=== PATIENT | female | born 1940 | race Caucasian/White ===

== ENCOUNTER → 2017-01-02 | Outpatient (CLI) | payer MEDICARE ==
[~2017-01-02] MED LIST: PROTONIX20 MG PO
== END | disposition home or self-care (01) ==
LOC: CARD 03:34
DX: I08.1 Rheumatic disorders of both mitral and tricuspid valves (principal); E03.9 Hypothyroidism, unspecified; I10 Essential (primary) hypertension

== ENCOUNTER → 2017-12-25 | Outpatient (CLI) | payer MEDICARE | END | disposition home or self-care (01) | LOC: US 13:30 | DX: I73.9 Peripheral vascular disease, unspecified (principal); I25.10 Atherosclerotic heart disease of native coronary artery without angina pectoris ==

== ENCOUNTER → 2019-02-01 | Outpatient (CLI) | payer MEDICARE ==
--- NOTE | ~2019-02-01 | EKG ---
[place], [place] ELECTROCARDIOGRAM REPORT NAME: MARY JOHNSTON UNIT #: [id number] ROOM: DOCTOR: ARTHUR DRAFT REPORT BIRTHDATE: [birth year] [facility] Test Date: 2019-02-01 Test Time: 11:23:22 Pat Name: MARY JOHNSTON Department: op Room: Gender: F [place] [place] [employer]: EKG.AL : 1940 Requested By: LORENZO REA Order Number: [id number] Reading MD: Kev Fernando MD Measurements Intervals [place] Rate: 81 P: 20 MI: 176 QRS: -12 QRSD: 99 T: -2 QT: 421 QTc: 489 Interpretive Statements Sinus rhythm Supraventricular bigeminy Inferior infarct, old Electronically Signed On 02-04-2019 9:59:58 PST by Kev Fernando MD CM:EKGRPT:ELECTROCARDIOGRAM REPORT [id number] LORENZO CARTAGENA DRAFT REPORT LORENZO REA DO
== END | disposition home or self-care (01) ==
LOC: CARD 10:55
DX: I49.9 Cardiac arrhythmia, unspecified (principal); R42 Dizziness and giddiness

== ENCOUNTER → 2019-02-26 | Outpatient (CLI) | payer MEDICARE ==
[2019-02-26 13:16] LABS: HEMOGLOBIN 13.6 g/dl (12.0-16.0); MEAN CELL VOLUME 100.2 fl (81.0-99.0); MEAN CORPUSCULAR HGB 32.5 pg (27.0-31.0); MEAN CORPUSCULAR HGB CONC 32.4 g/dl (33.0-37.0); MEAN PLATELET VOLUME 10.6 fl (9.6-12.3); PLATELET COUNT AUTOMATED 126 10*3/uL (130-400); RED BLOOD COUNT 4.19 10*6/uL (4.10-5.10); RED CELL DISTRI WIDTH 14.3 % (0-14.5); WHITE BLOOD COUNT 4.5 10*3/uL (4.8-10.8)
[2019-02-26 13:28] LABS: ALKALINE PHOSPHATASE 110 U/L (45-117); BILIRUBIN, DIRECT 0.5 mg/dL (0.0-0.2); BUN 11 mg/dl (7-24); CHLORIDE 107 mmol/L (98-107); CREATININE 1.03 mg/dL (0.55-1.02); POTASSIUM 3.4 mmol/L (3.5-5.1); SGOT/AST 46 IU/L (3-35); SGPT/ALT 25 U/L (12-78); SODIUM 142 mmol/L (136-145); TOTAL PROTEIN 6.9 gm/dL (6.4-8.2)
[2019-02-26 13:42] LABS: TOTAL CELLS COUNTED 100 #CELLS
[2019-02-26 13:43] LABS: PLATELET SUFFICIENCY LOW (NORMAL)
[2019-02-28 09:06] LABS: APTT 30.3 sec (22.9-30.2)
== END | disposition home or self-care (01) ==
LOC: LAB 12:43
PROVIDERS: Family Medicine
DX: D69.6 Thrombocytopenia, unspecified (principal); D72.1 Eosinophilia; E80.6 Other disorders of bilirubin metabolism; E87.6 Hypokalemia; R74.0 Nonspecific elevation of levels of transaminase and lactic acid dehydrogenase [LDH]

== ENCOUNTER → 2019-03-08 | Outpatient (CLI) | payer MEDICARE | END | disposition home or self-care (01) | LOC: CARD 10:00 | DX: I48.0 Paroxysmal atrial fibrillation (principal) ==

== ENCOUNTER → 2019-03-28 | Outpatient (CLI) | payer MEDICARE | END | disposition home or self-care (01) | LOC: CARD 12:00 | DX: I34.0 Nonrheumatic mitral (valve) insufficiency (principal); I48.0 Paroxysmal atrial fibrillation ==

== ENCOUNTER → 2019-04-02 | Outpatient (CLI) | payer MEDICARE ==
[2019-04-02 14:21] LABS: BASO % 0.9 % (0.0-1.0); EOS # 0.3 10*3/uL (0.0-0.4); EOS % 7.2 % (1.0-4.0); HEMATOCRIT 42.1 % (37.0-47.0); HEMOGLOBIN 13.6 g/dl (12.0-16.0); LYMPH # 1.7 10*3/uL (1.3-4.4); LYMPH % 37.3 % (27.0-41.0); MEAN CORPUSCULAR HGB 32.3 pg (27.0-31.0); MEAN CORPUSCULAR HGB CONC 32.3 g/dl (33.0-37.0); MEAN PLATELET VOLUME 10.7 fl (9.6-12.3); MONO # 0.7 10*3/uL (0.1-1.0); MONO % 14.6 % (3.0-9.0); NEUT # 1.8 10*3/uL (2.3-7.9); NEUT % 39.8 % (47.0-73.0); PLATELET COUNT AUTOMATED 130 10*3/uL (130-400); RED BLOOD COUNT 4.21 10*6/uL (4.10-5.10); RED CELL DISTRI WIDTH 14.2 % (0-14.5); WHITE BLOOD COUNT 4.6 10*3/uL (4.8-10.8)
[2019-04-02 14:48] LABS: ALBUMIN 3.2 gm/dl (3.1-4.5); ALKALINE PHOSPHATASE 142 U/L (45-117); BILIRUBIN, DIRECT 0.6 mg/dL (0.0-0.2); BUN 15 mg/dl (7-24); CHLORIDE 106 mmol/L (98-107); CREATININE 1.01 mg/dL (0.55-1.02); IRON 108 ug/dL (50-170); PHOSPHOROUS 3.1 mg/dL (2.5-4.9); POTASSIUM 3.2 mmol/L (3.5-5.1); SGOT/AST 36 IU/L (3-35); SGPT/ALT 23 U/L (12-78); SODIUM 141 mmol/L (136-145); TOTAL IRON BINDING CAPACITY 273 ug/dl (250-450); TOTAL PROTEIN 7.2 gm/dL (6.4-8.2)
[2019-04-03 15:09] LABS: PT MIXING STUDY 12.5 sec (9.6-11.5)
[2019-04-04 13:05] LABS: 1 HR INCUBATION PT 1:1NP 11.5 sec (9.6-11.5)
== END | disposition home or self-care (01) ==
LOC: LAB 13:39
PROVIDERS: Family Medicine
DX: E80.6 Other disorders of bilirubin metabolism (principal); I48.0 Paroxysmal atrial fibrillation; N18.3 Chronic kidney disease, stage 3 (moderate); R74.0 Nonspecific elevation of levels of transaminase and lactic acid dehydrogenase [LDH]; R35.0 Frequency of micturition

== ENCOUNTER → 2019-09-12 | Outpatient (CLI) | payer MEDICARE | LOC: US 08:30 | DX: K80.80 Other cholelithiasis without obstruction (principal); I70.0 Atherosclerosis of aorta ==

== ENCOUNTER → 2019-11-29 | Outpatient (CLI) | payer MEDICARE | END | disposition home or self-care (01) | LOC: RESCLI 01:03 | PROVIDERS: ATTEND Internal Medicine | DX: I10 Essential (primary) hypertension (principal); E03.9 Hypothyroidism, unspecified; R60.9 Edema, unspecified; I48.0 Paroxysmal atrial fibrillation; I83.93 Asymptomatic varicose veins of bilateral lower extremities; E55.9 Vitamin D deficiency, unspecified; Z79.899 Other long term (current) drug therapy; Z98.890 Other specified postprocedural states ==

== ENCOUNTER 2020-07-21 18:03 | Emergency (ER) | payer MEDICARE ==
[~2020-07-21] VITALS: Ht 152.4 cm; Wt 71.2 kg
[2020-07-21 19:53] LABS: BASO % 0.5 % (0.0-1.0); EOS # 0.2 10*3/uL (0.0-0.4); EOS % 4.7 % (1.0-4.0); HEMATOCRIT 33.7 % (37.0-47.0); LYMPH # 1.2 10*3/uL (1.3-4.4); LYMPH % 31.8 % (27.0-41.0); MEAN CELL VOLUME 96.6 fl (81.0-99.0); MEAN CORPUSCULAR HGB 31.5 pg (27.0-31.0); MEAN CORPUSCULAR HGB CONC 32.6 g/dl (33.0-37.0); MEAN PLATELET VOLUME 10.2 fl (9.6-12.3); MONO # 0.6 10*3/uL (0.1-1.0); MONO % 16.1 % (3.0-9.0); NEUT # 1.8 10*3/uL (2.3-7.9); NEUT % 46.6 % (47.0-73.0); PLATELET COUNT AUTOMATED 128 10*3/uL (130-400); RED BLOOD COUNT 3.49 10*6/uL (4.10-5.10); RED CELL DISTRI WIDTH 14.9 % (0-14.5); WHITE BLOOD COUNT 3.8 10*3/uL (4.8-10.8)
[2020-07-21 20:03] LABS: CREATININE 1.37 mg/dL (0.55-1.02)
== END 2020-07-21 22:15 | disposition home or self-care (01) ==
LOC: ED 18:03
PROVIDERS: Internal Medicine
DX: I87.2 Venous insufficiency (chronic) (peripheral) (principal); D61.818 Other pancytopenia; E87.6 Hypokalemia; N17.9 Acute kidney failure, unspecified; Z98.51 Tubal ligation status; Z90.49 Acquired absence of other specified parts of digestive tract

== ENCOUNTER 2020-08-14 14:06 | Inpatient (IN) | payer MEDICARE ==
[~2020-08-14] VITALS: Ht 152.4 cm; Wt 78.7 kg
[2020-08-14 14:26] VITALS: BP 126/74
[2020-08-14 14:54] LABS: BASO % 0.7 % (0.0-1.0); EOS # 0.1 10*3/uL (0.0-0.4); EOS % 3.3 % (1.0-4.0); HEMATOCRIT 32.7 % (37.0-47.0); LYMPH # 1.1 10*3/uL (1.3-4.4); LYMPH % 24.9 % (27.0-41.0); MEAN CELL VOLUME 97.6 fl (81.0-99.0); MEAN CORPUSCULAR HGB CONC 31.8 g/dl (33.0-37.0); MEAN PLATELET VOLUME 10.2 fl (9.6-12.3); MONO # 0.7 10*3/uL (0.1-1.0); MONO % 16.1 % (3.0-9.0); NEUT # 2.3 10*3/uL (2.3-7.9); NEUT % 54.8 % (47.0-73.0); PLATELET COUNT AUTOMATED 129 10*3/uL (130-400); RED BLOOD COUNT 3.35 10*6/uL (4.10-5.10); RED CELL DISTRI WIDTH 15.6 % (0-14.5); WHITE BLOOD COUNT 4.2 10*3/uL (4.8-10.8)
[2020-08-14 15:10] LABS: ALBUMIN 2.7 gm/dl (3.1-4.5); ALKALINE PHOSPHATASE 105 U/L (45-117); BUN 29 mg/dl (7-24); CHLORIDE 105 mmol/L (98-107); CREATININE 1.28 mg/dL (0.55-1.02); POTASSIUM 3.8 mmol/L (3.5-5.1); SGOT/AST 43 IU/L (3-35); SGPT/ALT 23 U/L (12-78); SODIUM 138 mmol/L (136-145); TOTAL PROTEIN 6.9 gm/dL (6.4-8.2)
[2020-08-14 15:13] LABS: TROPONIN I < 0.015 ng/ml (<0.045)
[2020-08-14 17:13] VITALS: BP 119/73
[2020-08-14] MEDS ORDERED: POTASSIUM CHLO20 ME3 PO (17:24)
[2020-08-14] MEDS ORDERED: ATENOLOL-CHLOR1 EACH PO (17:24)
[2020-08-14 17:55] VITALS: BP 120/71
[2020-08-14] MEDS ORDERED: SYNTHROID,LEVO75 MCG PO (18:16)
[2020-08-14] MEDS ORDERED: VITAMIN D350 MCG PO (18:16)
[2020-08-14] MEDS ORDERED: XARE20MG PO (18:59)
[2020-08-14 20:00] VITALS: BP 119/63
[2020-08-15] VITALS: BP 141/66
[2020-08-15 06:00] LABS: ALBUMIN 2.5 gm/dl (3.1-4.5); CREATININE 1.22 mg/dL (0.55-1.02); POTASSIUM 3.3 mmol/L (3.5-5.1); TOTAL PROTEIN 6.5 gm/dL (6.4-8.2)
[2020-08-15 06:07] LABS: FREE T4 1.5 ng/dl (0.76-1.46); THYROID STIM HORMONE (HS) 3.21 uIU/ml (0.358-4.75)
[2020-08-15 07:01] LABS: BASO % 0.8 % (0.0-1.0); EOS # 0.2 10*3/uL (0.0-0.4); EOS % 5.8 % (1.0-4.0); HEMATOCRIT 31.8 % (37.0-47.0); LYMPH # 1.1 10*3/uL (1.3-4.4); LYMPH % 26.6 % (27.0-41.0); MEAN CELL VOLUME 96.7 fl (81.0-99.0); MEAN CORPUSCULAR HGB CONC 32.1 g/dl (33.0-37.0); MEAN PLATELET VOLUME 10.8 fl (9.6-12.3); MONO # 0.7 10*3/uL (0.1-1.0); MONO % 18.1 % (3.0-9.0); NEUT # 1.9 10*3/uL (2.3-7.9); NEUT % 48.4 % (47.0-73.0); PLATELET COUNT AUTOMATED 125 10*3/uL (130-400); RED BLOOD COUNT 3.29 10*6/uL (4.10-5.10); RED CELL DISTRI WIDTH 15.8 % (0-14.5)
[2020-08-15 08:00] VITALS: BP 124/64
[2020-08-15 12:00] VITALS: BP 137/50
[2020-08-15 16:00] VITALS: BP 135/59
[2020-08-15 20:00] VITALS: BP 128/81
[2020-08-16] VITALS: BP 124/91
[2020-08-16 06:20] LABS: CREATININE 1.19 mg/dL (0.55-1.02); POTASSIUM 3.1 mmol/L (3.5-5.1)
[2020-08-16 08:00] VITALS: BP 129/63
[2020-08-16 12:00] VITALS: BP 113/43
[2020-08-16 16:00] VITALS: BP 117/56
[2020-08-16 20:00] VITALS: BP 122/65
[2020-08-17] VITALS (8 sets, daily range): BP systolic 90–140; BP diastolic 42–69
[2020-08-17 05:50] LABS: CREATININE 1.2 mg/dL (0.55-1.02); POTASSIUM 2.9 mmol/L (3.5-5.1)
[2020-08-17 06:45] LABS: BASO % 0.5 % (0.0-1.0); EOS # 0.2 10*3/uL (0.0-0.4); EOS % 4.6 % (1.0-4.0); HEMATOCRIT 34.7 % (37.0-47.0); LYMPH # 1.3 10*3/uL (1.3-4.4); MEAN CELL VOLUME 95.3 fl (81.0-99.0); MEAN CORPUSCULAR HGB 30.5 pg (27.0-31.0); MEAN PLATELET VOLUME 10.5 fl (9.6-12.3); MONO # 0.7 10*3/uL (0.1-1.0); MONO % 15.8 % (3.0-9.0); NEUT # 2.1 10*3/uL (2.3-7.9); NEUT % 48.9 % (47.0-73.0); PLATELET COUNT AUTOMATED 141 10*3/uL (130-400); RED BLOOD COUNT 3.64 10*6/uL (4.10-5.10); RED CELL DISTRI WIDTH 15.8 % (0-14.5); WHITE BLOOD COUNT 4.4 10*3/uL (4.8-10.8)
[2020-08-18] VITALS: BP 112/51
[2020-08-18 06:21] LABS: CREATININE 1.24 mg/dL (0.55-1.02); POTASSIUM 3.1 mmol/L (3.5-5.1)
[2020-08-18 08:00] VITALS: BP 137/67
[2020-08-18 12:00] VITALS: BP 141/58
[2020-08-18 16:00] VITALS: BP 138/58
[2020-08-18 20:00] VITALS: BP 120/54
[2020-08-19] VITALS: BP 113/49; BP 99/81
[2020-08-19 06:32] LABS: CREATININE 1.26 mg/dL (0.55-1.02); POTASSIUM 3.3 mmol/L (3.5-5.1)
[2020-08-19 08:00] VITALS: BP 126/46
[2020-08-19 12:00] VITALS: BP 120/51
[2020-08-19] MEDS ORDERED: ALDACTONE25 MG PO (13:27)
[2020-08-19] MEDS ORDERED: TOPROL XL25 MG PO (13:27)
== END 2020-08-19 15:30 | disposition home health service (06) | DRG 291 ==
LOC: ED 14:06 → 4E 15:25 → EDHOLD 15:25 → 4E 17:33
PROVIDERS: Internal Medicine; Student in an Organized Health Care Education/Training Program; ADMIT Family Medicine; ATTEND Family Medicine
PROC: 5A2204Z Restoration of Cardiac Rhythm, Single (ICD-10-PCS; principal; 2020-08-17)
DX: I13.0 Hypertensive heart and chronic kidney disease with heart failure and stage 1 through stage 4 chronic kidney disease, or unspecified chronic kidney disease (principal); I50.33 Acute on chronic diastolic (congestive) heart failure; R65.11 Systemic inflammatory response syndrome (SIRS) of non-infectious origin with acute organ dysfunction; E43 Unspecified severe protein-calorie malnutrition; E44.0 Moderate protein-calorie malnutrition; D61.818 Other pancytopenia; I87.2 Venous insufficiency (chronic) (peripheral); N18.32 Chronic kidney disease, stage 3b; E80.6 Other disorders of bilirubin metabolism; E66.9 Obesity, unspecified; Z68.39 Body mass index [BMI] 39.0-39.9, adult; E03.9 Hypothyroidism, unspecified; D69.6 Thrombocytopenia, unspecified; D64.9 Anemia, unspecified; E66.01 Morbid (severe) obesity due to excess calories; E87.6 Hypokalemia; I48.0 Paroxysmal atrial fibrillation; I27.20 Pulmonary hypertension, unspecified; I34.0 Nonrheumatic mitral (valve) insufficiency; Z79.01 Long term (current) use of anticoagulants; Z90.49 Acquired absence of other specified parts of digestive tract; Z98.51 Tubal ligation status

== ENCOUNTER 2020-09-24 12:55 | Emergency (ER) | payer MEDICARE ==
[~2020-09-24 12:55] MED LIST changes: +ALDACTONE25 MG PO; +ATENOLOL-CHLOR1 EACH PO; +POTASSIUM CHLO20 ME3 PO; +SYNTHROID,LEVO75 MCG PO; +TOPROL XL25 MG PO; +VITAMIN D350 MCG PO; +XARE20MG PO
[2020-09-24 14:41] LABS: BASO % 0.7 % (0.0-1.0); EOS # 0.1 10*3/uL (0.0-0.4); EOS % 2.6 % (1.0-4.0); HEMATOCRIT 34.9 % (37.0-47.0); LYMPH # 1.7 10*3/uL (1.3-4.4); LYMPH % 40.3 % (27.0-41.0); MEAN CELL VOLUME 97.8 fl (81.0-99.0); MEAN CORPUSCULAR HGB 31.4 pg (27.0-31.0); MEAN CORPUSCULAR HGB CONC 32.1 g/dl (33.0-37.0); MEAN PLATELET VOLUME 10.2 fl (9.6-12.3); MONO # 0.6 10*3/uL (0.1-1.0); MONO % 14.1 % (3.0-9.0); NEUT # 1.8 10*3/uL (2.3-7.9); NEUT % 42.1 % (47.0-73.0); PLATELET COUNT AUTOMATED 163 10*3/uL (130-400); RED BLOOD COUNT 3.57 10*6/uL (4.10-5.10); RED CELL DISTRI WIDTH 16.8 % (0-14.5); WHITE BLOOD COUNT 4.2 10*3/uL (4.8-10.8)
[2020-09-24 14:55] LABS: ACT PARTIAL THROMBO TIME 51.4 SECONDS (20.0-32.1); INTERNATIONAL NORM RATIO 1.9 (2.0-3.5)
[2020-09-24 14:57] LABS: ALBUMIN 2.5 gm/dl (3.1-4.5); CREATININE 1.11 mg/dL (0.55-1.02); POTASSIUM 4.5 mmol/L (3.5-5.1); TOTAL PROTEIN 6.8 gm/dL (6.4-8.2)
[2020-09-24 16:06] LABS: BILIRUBIN Negative (Negative); BLOOD 1+ (Negative); CLARITY Clear (Clear); COLOR Yellow (Yellow); GLUCOSE Negative (Negative); KETONE Negative (Negative); LEUKO ESTERASE Negative (Negative); NITRITE Positive (Negative); PH 7.5 (4.5-8.0)
[2020-09-24 16:16] LABS: BACTERIA 4+; WBC 0-2 wbc/hpf (0-5)
[2020-09-24] MEDS ORDERED: SEPTDS PO (16:27)
== END 2020-09-24 17:12 | disposition home or self-care (01) ==
LOC: ED 12:55
PROVIDERS: Physician Assistant
DX: N92.1 Excessive and frequent menstruation with irregular cycle (principal); N39.0 Urinary tract infection, site not specified; Z98.51 Tubal ligation status; Z90.49 Acquired absence of other specified parts of digestive tract; Z79.899 Other long term (current) drug therapy

== ENCOUNTER → 2020-11-25 | Outpatient (CLI) | payer MEDICARE ==
[~2020-11-25] MED LIST changes: +SEPTDS PO
== END | disposition home or self-care (01) ==
LOC: RESCLI 02:32
PROVIDERS: ATTEND Student in an Organized Health Care Education/Training Program
DX: I10 Essential (primary) hypertension (principal); K21.9 Gastro-esophageal reflux disease without esophagitis; R60.0 Localized edema; Z79.899 Other long term (current) drug therapy

== ENCOUNTER → 2021-01-18 | Outpatient (CLI) | payer MEDICARE | END | disposition home or self-care (01) | LOC: US 11:00 | PROVIDERS: ATTEND Nurse Practitioner Primary Care | DX: K74.60 Unspecified cirrhosis of liver (principal); K80.20 Calculus of gallbladder without cholecystitis without obstruction ==

== ENCOUNTER → 2021-05-26 | Outpatient (CLI) | payer MEDICARE | END | disposition home or self-care (01) | LOC: RESCLI 00:21 | PROVIDERS: ATTEND Internal Medicine | DX: I10 Essential (primary) hypertension (principal); E03.9 Hypothyroidism, unspecified; M79.89 Other specified soft tissue disorders; E55.9 Vitamin D deficiency, unspecified; I48.0 Paroxysmal atrial fibrillation; K21.9 Gastro-esophageal reflux disease without esophagitis; Z79.899 Other long term (current) drug therapy; Z98.890 Other specified postprocedural states ==

== ENCOUNTER 2021-06-15 12:57 | Inpatient (IN) | payer MEDICARE ==
[~2021-06-15] VITALS: Ht 152.4 cm; Wt 62.4 kg
[2021-06-15 13:02] VITALS: BP 111/83
[2021-06-15 14:29] LABS: BASO % 0.6 % (0.0-1.0); EOS # 0.3 10*3/uL (0.0-0.4); EOS % 5.8 % (1.0-4.0); HEMATOCRIT 25.9 % (37.0-47.0); LYMPH % 22.5 % (27.0-41.0); MEAN CELL VOLUME 94.9 fl (81.0-99.0); MEAN CORPUSCULAR HGB 30.8 pg (27.0-31.0); MEAN CORPUSCULAR HGB CONC 32.4 g/dl (33.0-37.0); MEAN PLATELET VOLUME 11.6 fl (9.6-12.3); MONO # 0.7 10*3/uL (0.1-1.0); MONO % 14.3 % (3.0-9.0); NEUT # 2.6 10*3/uL (2.3-7.9); NEUT % 56.6 % (47.0-73.0); PLATELET COUNT AUTOMATED 122 10*3/uL (130-400); RED BLOOD COUNT 2.73 10*6/uL (4.10-5.10); RED CELL DISTRI WIDTH 17.9 % (0-14.5); WHITE BLOOD COUNT 4.6 10*3/uL (4.8-10.8)
[2021-06-15 14:55] LABS: CREATININE 2.39 mg/dL (0.55-1.02); POTASSIUM 4.4 mmol/L (3.5-5.1); TOTAL PROTEIN 6.9 gm/dL (6.4-8.2)
[2021-06-15] MEDS ORDERED: SYNTHROID,LEVO88 MCG PO (15:37)
[2021-06-15] MEDS ORDERED: METOPROLOL SUCC50 M2 PO (15:38)
[2021-06-15] MEDS ORDERED: LASIX40 MG PO (15:38)
[2021-06-15] MEDS ORDERED: VITAMIN D3125 MCG PO (15:41)
[2021-06-15] MEDS ORDERED: KLOR-CON M2020 ME1 PO (15:41)
[2021-06-15 18:10] VITALS: BP 115/69
[2021-06-15 20:00] VITALS: BP 111/62
[2021-06-16] VITALS: BP 124/66
[2021-06-16 00:36] LABS: FERRITIN 230.1 ng/mL (10.0-291.0)
[2021-06-16 05:58] LABS: CREATININE 2.06 mg/dL (0.55-1.02); POTASSIUM 3.9 mmol/L (3.5-5.1); TOTAL PROTEIN 6.3 gm/dL (6.4-8.2)
[2021-06-16 06:34] LABS: BASO % 0.5 % (0.0-1.0); EOS # 0.3 10*3/uL (0.0-0.4); EOS % 6.7 % (1.0-4.0); HEMATOCRIT 23.3 % (37.0-47.0); LYMPH # 1.3 10*3/uL (1.3-4.4); MEAN CELL VOLUME 93.6 fl (81.0-99.0); MEAN CORPUSCULAR HGB 31.7 pg (27.0-31.0); MEAN CORPUSCULAR HGB CONC 33.9 g/dl (33.0-37.0); MEAN PLATELET VOLUME 11.8 fl (9.6-12.3); MONO # 0.6 10*3/uL (0.1-1.0); MONO % 13.6 % (3.0-9.0); PLATELET COUNT AUTOMATED 109 10*3/uL (130-400); RED BLOOD COUNT 2.49 10*6/uL (4.10-5.10); RED CELL DISTRI WIDTH 17.6 % (0-14.5); WHITE BLOOD COUNT 4.2 10*3/uL (4.8-10.8)
[2021-06-16 08:00] VITALS: BP 109/60
[2021-06-16 12:00] VITALS: BP 99/60
[2021-06-16 14:23] LABS: BILIRUBIN Negative (Negative); BLOOD 2+ (Negative); CLARITY Clear (Clear); COLOR Yellow (Yellow); GLUCOSE Negative (Negative); KETONE Negative (Negative); LEUKO ESTERASE 3+ (Negative); NITRITE Negative (Negative); PH 5.5 (4.5-8.0); SPECIFIC GRAVITY <= 1.005 (1.001-1.030)
[2021-06-16 14:33] LABS: BACTERIA 4+
[2021-06-16 14:34] LABS: RBC 0-2 rbc/hpf (0-2); URINE CREATININE RANDOM 24.7 mg/dL; WBC 41-50 wbc/hpf (0-5)
[2021-06-16 15:56] VITALS: BP 103/63
[2021-06-16 20:00] VITALS: BP 100/63
[2021-06-17] VITALS: BP 116/60
[2021-06-17 06:42] LABS: BASO % 0.4 % (0.0-1.0); EOS # 0.3 10*3/uL (0.0-0.4); EOS % 5.8 % (1.0-4.0); HEMATOCRIT 25.3 % (37.0-47.0); LYMPH # 1.4 10*3/uL (1.3-4.4); LYMPH % 26.8 % (27.0-41.0); MEAN CELL VOLUME 92.3 fl (81.0-99.0); MEAN CORPUSCULAR HGB 30.7 pg (27.0-31.0); MEAN CORPUSCULAR HGB CONC 33.2 g/dl (33.0-37.0); MEAN PLATELET VOLUME 11.2 fl (9.6-12.3); MONO # 0.7 10*3/uL (0.1-1.0); MONO % 12.9 % (3.0-9.0); NEUT # 2.7 10*3/uL (2.3-7.9); NEUT % 53.9 % (47.0-73.0); PLATELET COUNT AUTOMATED 115 10*3/uL (130-400); RED BLOOD COUNT 2.74 10*6/uL (4.10-5.10); RED CELL DISTRI WIDTH 17.6 % (0-14.5)
[2021-06-17 06:55] LABS: POTASSIUM 4.2 mmol/L (3.5-5.1)
[2021-06-17 06:57] LABS: CREATININE 1.96 mg/dL (0.55-1.02)
[2021-06-17 08:00] VITALS: BP 109/61
[2021-06-17] MEDS ORDERED: LASIX20 MG PO (11:56)
[2021-06-17] MEDS ORDERED: KLOR-CON M2020 ME1 PO (11:56)
[2021-06-17 12:00] VITALS: BP 107/90; BP 97/50
[2021-06-17] MEDS ORDERED: DOXYCYCLINE HY100 M3 PO ×2 (16:51)
[2021-06-18] MEDS ORDERED: CEFUROXIME AXE500 MG PO ×2 (16:31)
[2021-06-24] MEDS ORDERED: XARE15TA PO (20:00)
[2021-07-02] MEDS ORDERED: XIFAXAN550 MG PO (11:21)
[2021-07-02] MEDS ORDERED: XIFAXAN200 M1 PO (15:51)
== END 2021-06-17 17:13 | disposition home health service (06) | DRG 177 ==
LOC: ED 12:57 → 4E 15:34 → EDHOLD 15:34 → 4E 16:39
PROVIDERS: Internal Medicine; Internal Medicine Nephrology; Physician Assistant; Student in an Organized Health Care Education/Training Program; ADMIT Internal Medicine; ATTEND Internal Medicine
PROC: BD1BYZZ Fluoroscopy of Mouth/Oropharynx using Other Contrast (ICD-10-PCS; principal; 2021-06-17)
DX: J69.0 Pneumonitis due to inhalation of food and vomit (principal); E43 Unspecified severe protein-calorie malnutrition; N17.0 Acute kidney failure with tubular necrosis; E87.1 Hypo-osmolality and hyponatremia; I13.0 Hypertensive heart and chronic kidney disease with heart failure and stage 1 through stage 4 chronic kidney disease, or unspecified chronic kidney disease; I50.30 Unspecified diastolic (congestive) heart failure; N18.30 Chronic kidney disease, stage 3 unspecified; Z20.822 Contact with and (suspected) exposure to COVID-19; K52.9 Noninfective gastroenteritis and colitis, unspecified; D64.9 Anemia, unspecified; D69.6 Thrombocytopenia, unspecified; E80.6 Other disorders of bilirubin metabolism; R74.01 Elevation of levels of liver transaminase levels; E03.9 Hypothyroidism, unspecified; K64.9 Unspecified hemorrhoids; I48.91 Unspecified atrial fibrillation; R13.12 Dysphagia, oropharyngeal phase; Z80.0 Family history of malignant neoplasm of digestive organs; Z82.49 Family history of ischemic heart disease and other diseases of the circulatory system; Z79.899 Other long term (current) drug therapy; Z98.51 Tubal ligation status

== ENCOUNTER → 2021-06-21 | Outpatient (CLI) | payer MEDICARE ==
[~2021-06-21] MED LIST changes: +CEFUROXIME AXE500 MG PO; +DOXYCYCLINE HY100 M3 PO; +KLOR-CON M2020 ME1 PO; +LASIX20 MG PO; +LASIX40 MG PO; +METOPROLOL SUCC50 M2 PO; +SYNTHROID,LEVO88 MCG PO; +VITAMIN D3125 MCG PO; +XARE15TA PO; +XIFAXAN200 M1 PO; +XIFAXAN550 MG PO
[2021-06-21 14:58] LABS: BASO % 0.8 % (0.0-1.0); EOS # 0.1 10*3/uL (0.0-0.4); EOS % 3.2 % (1.0-4.0); LYMPH # 0.9 10*3/uL (1.3-4.4); LYMPH % 24.2 % (27.0-41.0); MEAN CELL VOLUME 94.5 fl (81.0-99.0); MEAN CORPUSCULAR HGB 30.5 pg (27.0-31.0); MEAN CORPUSCULAR HGB CONC 32.3 g/dl (33.0-37.0); MONO # 0.6 10*3/uL (0.1-1.0); MONO % 16.1 % (3.0-9.0); NEUT # 2.1 10*3/uL (2.3-7.9); NEUT % 55.4 % (47.0-73.0); PLATELET COUNT AUTOMATED 110 10*3/uL (130-400); RED BLOOD COUNT 2.75 10*6/uL (4.10-5.10); RED CELL DISTRI WIDTH 17.6 % (0-14.5); WHITE BLOOD COUNT 3.8 10*3/uL (4.8-10.8)
[2021-06-21 15:14] LABS: CREATININE 2.55 mg/dL (0.55-1.02); POTASSIUM 5.1 mmol/L (3.5-5.1); TOTAL PROTEIN 7.4 gm/dL (6.4-8.2)
== END | disposition home or self-care (01) ==
LOC: LAB 14:14
PROVIDERS: ATTEND Internal Medicine
DX: N17.0 Acute kidney failure with tubular necrosis (principal); D64.9 Anemia, unspecified